=== PATIENT | male | born 1990 | race Caucasian/White ===

== ENCOUNTER 2021-05-03 06:01 | Emergency (ER) | payer OTHER ==
[~2021-05-03] VITALS: Ht 180.3 cm; Wt 108.9 kg
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
[2021-05-03] MEDS ORDERED: KETOROLAC TROMETHAMINE 15 MG/ML VIAL ONE (06:39)
[2021-05-03] MEDS: KETOROLAC TROMETHAMINE INJ 30 MG/ML VIAL IM ONE (06:40)
[2021-05-03] MEDS ORDERED: IBUP-1955 PO (07:13)
--- NOTE | 2021-05-03 07:16 | NUR ---
REPORT GIVEN TO POPPY RN FOR TRESA
--- NOTE | 2021-05-03 07:37 | NUR ---
The patient is sleeping. Responsive to verbal stimuli. Patient in no apparent distress. Will continue to monitor the patient.
[2021-05-03 08:30] VITALS: BP 127/87
--- NOTE | 2021-05-03 08:31 | NUR ---
Patient discharged to home in stable condition. Written and verbal after care instructions given. Patient verbalizes understanding of instruction.
== END 2021-05-03 08:31 | disposition home or self-care (01) ==
LOC: ER 06:01
DX: S00.03XA Contusion of scalp, initial encounter (principal); S50.312A Abrasion of left elbow, initial encounter; Y04.0XXA Assault by unarmed brawl or fight, initial encounter; Y93.89 Activity, other specified; Y92.89 Other specified places as the place of occurrence of the external cause; Y99.8 Other external cause status
CPT/HCPCS: 73080; 96372; 99283; J1885

== ENCOUNTER 2022-05-28 08:10 | Emergency (ER) | payer OTHER ==
[~2022-05-28] VITALS: Ht 180.3 cm; Wt 104.3 kg
[~2022-05-28 08:10] MED LIST: IBUP-1955 PO
[2022-05-28 08:20] VITALS: BP 116/88
== END 2022-05-28 08:44 | disposition home or self-care (01) ==
LOC: ER 08:15
DX: R21 Rash and other nonspecific skin eruption (principal); Z79.1 Long term (current) use of non-steroidal anti-inflammatories (NSAID)

== ENCOUNTER 2022-06-11 15:26 | Emergency (ER) | payer OTHER ==
--- NOTE | 2022-06-11 18:41 | NUR ---
CALLED FOR TRIAGE, NO RESPONSE
--- NOTE | 2022-06-11 18:52 | NUR ---
CALLED FOR TRIAGE, NO RESPONSE.
== END 2022-06-11 19:21 | disposition left against medical advice (07) ==
LOC: ER 15:30
DX: Z53.21 Procedure and treatment not carried out due to patient leaving prior to being seen by health care provider (principal)